=== PATIENT | female | born 1990 | race Caucasian/White ===

== ENCOUNTER 2022-05-19 05:40 | Day surgery (SDC) | payer MEDICAID ==
[~2022-05-19] VITALS: Ht 162.6 cm; Wt 80.3 kg
[2022-05-19] MEDS ORDERED: MEPERIDINE HCL/PF 25 MG/ML DISP.SYRIN IVP PRN (09:30)
[2022-05-19] MEDS ORDERED: IBUPROFEN 600 MG TABLET PO ONE (09:30)
[2022-05-19] MEDS ORDERED: MORPHINE 4 MG INJ. 4 MG/ML VIAL IVP PRN (09:30)
[2022-05-19] MEDS ORDERED: KETOROLAC TROMETHAMINE 30 MG VIAL IVP PRN (09:30)
[2022-05-19] MEDS ORDERED: ONDANSETRON HCL 4 MG/2 ML VIAL IVP PRN (09:30)
[2022-05-19] MEDS ORDERED: SUCCINYLCHOLINE CHLORIDE 20 MG/ML(QUELICIN) ONE (10:04)
[2022-05-19] MEDS ORDERED: PROPOFOL 200MG/ 20ML VIAL (DIPRIVAN) IV ONE (10:04)
[2022-05-19] MEDS ORDERED: ROCURONIUM BROMIDE 10 MG/ML (ZEMURON) ONE (10:04)
[2022-05-19] MEDS ORDERED: ONDANSETRON HCL 4 MG/2 ML VIAL ONE (10:04)
[2022-05-19] MEDS ORDERED: SEVOFLURANE 15 MIN GAS INH ONE (10:04)
[2022-05-19] MEDS ORDERED: KETOROLAC TROMETHAMINE 30 MG VIAL ONE (10:04)
[2022-05-19] MEDS ORDERED: LR 1,000 ML IV.SOLN IV ONE (10:04)
[2022-05-19 12:46] VITALS: BP_SYST 119
== END 2022-05-19 13:05 | disposition home or self-care (01) ==
LOC: SDS 05:40 → SMU 05:52 → SDS 13:05
PROVIDERS: ATTEND Obstetrics & Gynecology
DX: Z30.2 Encounter for sterilization (principal); Z20.822 Contact with and (suspected) exposure to COVID-19
CPT/HCPCS: 36415 ×2; 58661; 87426; U0003; J1885; J2405; J2704; J0330; J7120